=== PATIENT | female | born 1945 | race Caucasian/White ===

== ENCOUNTER 2022-02-17 10:30 | Emergency (ER) | payer MEDICARE, BC, SELFPAY ==
[2022-02-17 10:47] VITALS: BP 124/75; PULSE 69; RESP 18; TEMP 36.7; O2SAT 95; BMI 36.0
[2022-02-17 11:23] LABS: Strep A DNA Probe* NOT DETECTED (No Detected)
--- NOTE | 2022-02-17 12:16 | ED.GENADULT ---
HPI - General Adult General Time Seen by Provider: 12:17 Date Seen: 02/17/22 Chief complaint: Sore Throat Stated complaint: Sore throat Time Seen by Provider: 02/17/22 11:43 Source: patient, RN notes reviewed and old records reviewed Mode of arrival: ambulatory Limitations: no limitations History of Present Illness HPI narrative: Marybeth is a very pleasant 76-year-old woman with history of hypertension and hyperlipidemia otherwise healthy who comes to the emergency room with complaints of a sore throat. Patient notes cold-like symptoms developing on Sunday evening February 14. She states that she experienced some body aches on the . She started noting a sore throat last night into today. She notes that her voice seems a little bit different. She is not experiencing any difficulty breathing or swallowing. She has been able to eat and drink without difficulty. She rates the pain a 5/10 in her throat. She did take Tylenol this morning and she feels like maybe she is somewhat improved. Patient notes that she has not been exposed to any illnesses and does not really go anywhere. She states that she has a son with cancer and she is trying to stay safe in order to be with him. She does go to the grocery store and she does not wear her mask when she does that. She denies any shortness of breath, lightheadedness or chest pain. She also denies calf tenderness or swelling. Related Data Home Medications Medication Instructions Recorded Confirmed atorvastatin 10 mg tablet mg 02/17/22 hydrochlorothiazide 25 mg tablet mg 02/17/22 Previous Rx's Medication Instructions Recorded nirmatrelvir 150 mg-ritonavir 100 See Rx Instructions PO .COMPLEX 02/17/22 mg tablets in a dose pack (EUA) #10 ea (Paxlovid) Allergies Allergy/AdvReac Type Severity Reaction Status Date / Time No Known Drug Allergies Allergy Verified 02/17/22 10:51 Review of Systems Status of ROS: Reports: 10 or more systems reviewed and unremarkable except as noted in History and below Const: Reports: malaise; Denies: fever Eyes: Denies: change in vision ENMT: Reports: throat pain; Denies: neck pain or throat swelling Cardio: Denies: chest pain, palpitations or shortness of breath with exertion Resp: Denies: shortness of breath or cough GI: Denies: abdominal pain, nausea, vomiting or diarrhea : Denies: painful urination Musculo: Denies: back pain or neck pain Integ/Breast: Denies: rash Neuro: Denies: headache Allergy/Immuno: Denies: throat swelling [facility] Medical History Hyperlipidemia Hypertension Surgical History No significant past surgical history Social History Smoking Status: Former smoker How often do you have a drink containing alcohol: never AUDIT-C Alcohol total score: 0 Non-prescribed substance use: denies use Exam Const: Vital Signs, click to edit/add: Vital Signs - 24 hr 02/17/22 10:47 Temperature 98.1 F Pulse Rate [Pulse Oximeter] 69 Respiratory Rate 18 Blood Pressure [Ri ght Upper Arm] 124/75 Pulse Oximetry 95 Oxygen Delivery Me thod Room Air Documenting provider has reviewed patient's vital signs: yes Common normals: no apparent distress, oriented x3, no limitations, healthy appearing, alert and well nourished General appearance: cooperative, comfortable and well kempt HENMT: Common normals: normocephalic, head/scalp atraumatic, external ears normal and TM's normal bilaterally Head and scalp: normocephalic and atraumatic Face and sinus: normal facial exam External ear: external ears normal Tympanic membrane: TM's normal bilaterally Mouth: oral and palatal mucosa normal Throat: posterior oropharynx normal and uvula midline Other: No trismus Eye: Common normals: PERRL General eye: normal appearance of both eyes Pupil: PERRL Neck & C-Spine: Common normals: no lymphadenopathy, supple and no meningeal signs General: normal visual inspection Cervical spine: cervical ROM normal Resp: Common normals: normal respiratory effort and clear to auscultation bilaterally Auscultation: clear to auscultation bilaterally Cardio: Common normals: regular rate and regular rhythm Rate: regular rate Rhythm: regular rhythm Heart sounds: murmur Extremity: Common normals: normal to inspection General: no edema Neuro: Common normals: oriented x3 Sensorium/orientation: alert Meningeal signs: no meningeal signs Psych: Common normals: mental status grossly normal Appearance: well kempt Skin: Common normals: no rashes or lesions noted General skin exam: no rashes or lesions noted Course Course Hospital Course: at this time differential diagnosis does include But is not limited to strep pharyngitis, COVID, viral pharyngitis, abscess. patient has a negative strep at this time. Will check for COVID. If negative consider further laboratory values and imaging. No red flag symptoms such as tripoding, wheezing, stridor at this time. Reevaluation(s) Reevaluation #1: Patient has a positive COVID. This is discussed with patient. Vital Signs Vital signs: Initial Vital Signs Temperature 98.1 F 02/17/22 10:47 Temperature Source Temporal Artery Scan 02/17/22 10:47 Pulse Rate 69 02/17/22 10:47 Respiratory Rate 18 02/17/22 10:47 Blood Pressure 124/75 02/17/22 10:47 Blood Pressure Mean 91 02/17/22 10:47 Blood Pressure Position Supine 02/17/22 10:47 Pulse Oximetry 95 02/17/22 10:47 Oxygen Delivery Method 02/17/22 10:47 Vital Signs Temperature 98.1 F 02/17/22 10:47 Pulse Rate 69 02/17/22 10:47 Respiratory Rate 18 02/17/22 10:47 Blood Pressure 124/75 02/17/22 10:47 Pulse Oximetry 95 02/17/22 10:47 Oxygen Delivery Method 02/17/22 10:47 Temperature 98.1 F 02/17/22 10:47 Pulse Rate 69 02/17/22 10:47 Respiratory Rate 18 02/17/22 10:47 Blood Pressure 124/75 02/17/22 10:47 Pulse Oximetry 95 02/17/22 10:47 Oxygen Delivery Method 02/17/22 10:47 Medical Decision Making MDM Narrative Medical decision making narrative: 1. COVID- patient has pharyngitis secondary to COVID along with some body aches. At this time her oxygen levels, vital signs, history would be reassuring. Today is today 2.5 of symptoms. She is a candidate for Paxilovid but is currently on a statin. Patient is interested in using Paxilovid. I did provide patient with the fact sheets for patient's from [facility] in regards to the medication. We talked about risks and benefits. At this time patient will think about this as we get her creatinine. We will allow her to be discharged home and I will call her with those results and we can further discuss Paxilovid usage or not 1700 hours-patient is contacted. At this time she does feel like she will use Paxilovid we will use the reduced dose based on her modified creatinine clearance. This was sent to [facility]'s pharmacy. I would agree. While there is no medication that is completely free of risk I do think that the benefits outweigh risks in this particular situation.Also spoke about COVID breakthrough and that we do have some reports a people testing positive once again. I have recommended that she do a [id number] test to ensure that she is indeed negative. Reassurance that if this does happen we have not seen any reports of patient is becoming worse in terms of symptoms or needing hospitalization. However, we do ask that quarantine continue if she does test positive. Also spoke of starting Paxlovid tonight as she did take her atorvastatin this morning. This will lower 12 hour gap. She will hold her atorvastatin while on the medication and not restart that until February 25 or 72 hours after her last dose Paxilovid. 2. Disposition-patient is discharged home. She will return for increasing symptoms especially shortness of breath, difficulty breathing, vomiting, inability to keep food down or inability to eat. Medical Records Medical records reviewed: Yes I reviewed the patient's medical records Lab Data Lab results reviewed: Yes I reviewed the patient's lab results Lab results narrative: Creatinine kinase inadvertently ordered and this will be canceled. Creatinine 0.9 Calculation of creatinine clearance was 77 but modified given obesity. Modified patient is between 45-50. Therefore will use the reduced dose. Labs: Lab Results 02/17/22 02/17/22 02/17/22 Range/Units 10:56 12:15 13:55 Creatinine (0.5-1.5) mg/dL Estimated Creat Clear Estimated GFR ml/min Total Creatine Kinase Cancelled SARS-CoV-2 (PCR) POSITIVE SARS-CoV-2 A (Negative) Influenza Type A (PCR) Negative PCR FLU A (Negative) Influenza Type B (PCR) Negative PCR FLU B (Negative) Group A Strep DNA NOT DETECTED (No Detected) 02/17/22 Range/Units 13:55 Creatinine 0.9 (0.5-1.5) mg/dL Estimated Creat Clear 39.04 Estimated GFR 67 ml/min Total Creatine Kinase SARS-CoV-2 (PCR) (Negative) Influenza Type A (PCR) (Negative) Influenza Type B (PCR) (Negative) Group A Strep DNA (No Detected) Discharge Plan Discharge Clinical Impression: COVID Patient Disposition: Home, Self-Care Condition: Unchanged Additional Instructions: Await my phone call. I will give you the results of your kidney or creatinine test. We can then further discuss any questions you may have about the use of a medicine called Paxiolid. Tylenol or ibuprofen as needed for discomfort. Push fluids and stay well hydrated. Return to the emergency room for difficulty breathing, persistent vomiting and as needed. Activity Level: No Weight Bearing Prescriptions: New Paxlovid (EUA) 150-100 mg tablets,dose pack See Rx Instructions .ROUTE .COMPLEX Qty: 10 0RF Rx Instructions: take ONE 150 mg tablet of nirmatrelvir with ONE 100 mg tablet of ritonavir twice daily for 5 days No Action atorvastatin 10 mg tablet hydrochlorothiazide 25 mg tablet Follow Up/Referrals: Provider,Not a Local [Primary Care Provider] - Stand Alone Forms: [employer] Info Instructions
[2022-02-17 13:04] LABS: PCR FLU A Negative PCR FLU A (Negative); PCR FLU B Negative PCR FLU B (Negative); SARS PCR* POSITIVE SARS-CoV-2 (Negative)
[2022-02-17 16:29] LABS: Creatinine* 0.9 mg/dL (0.5-1.5); Est. Creatinine Clearance* 39.04; Estimated Glomerular Filt Rate 67 ml/min
== END 2022-02-17 14:06 | disposition home or self-care (01) ==
PROVIDERS: Emergency Provider Family Medicine
DX: U07.1 COVID-19 (principal)
CPT/HCPCS: 36415; 82550; 82565; 87631; 87651; 99283; 99284